=== PATIENT | male | born 1985 | race Caucasian/White ===

== ENCOUNTER 2016-09-18 01:33 | Emergency (ER) | payer OTHER ==
[2016-09-18 02:17] VITALS: BP 131/75
[2016-09-18] MEDS ORDERED: HYDROCODONE/ACETAMINOPHEN 5-325 MG 6 TAB/DSPK PO PRN (02:27)
--- NOTE | 2016-09-18 02:31 | ER Document Report ---
HPI - HPI Patient complains to provider of: right ankle pain Onset: Just prior to arrival Onset/Duration: Sudden Quality of pain: Achy Severity: Severe Pain Level: 5 Associated Symptoms: None Exacerbated by: Walking Relieved by: Denies Similar symptoms previously: No Recently seen / treated by doctor: No - MUSCULOSKELETAL Musculoskeletal: REPORTS: Extremity pain - DERM Skin Color: Normal, [place] - NURSING COMMENTS Comment: Pt presents to ED via EMS for Lt ankle injury. 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 Lt ankle is positive for swelling and tenderness. Tenderness runs up Lt calf. PMS intact, no notable deformities. Pt states he has numbness in his calf. 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 IN LAST 30 DAYS: No COUNTRY TRAVELED TO/FROM: [facility] HEENT: Atraumatic, Normocephalic - NECK Neck: Normal Inspection, Supple - RESPIRATORY Respiratory: No Respiratory Distress O2 Sat by Pulse Oximetry: 97 - CARDIOVASCULAR Cardiovascular: Tachycardia - MUSCULOSKELETAL/EXTREMETIES Musculoskeletal/Extremeties: Tender - left lateral ankle ttp, swelling, no obvious deformity, good pedal pulse, good cap refill - NEURO Level of Consciousness: Awake, Alert, Appropriate Motor/Sensory: No Motor Deficit Course - Re-evaluation Re-evalutation: 09/18/16 pt instructed on neg xray, plan of care. he verbalized understanding - Vital Signs Vital signs: Temp Pulse Resp BP Pulse Ox 103 H 17 131/75 H 97 09/18/16 02:16 09/18/16 02:16 09/18/16 02:16 09/18/16 02:16 - Diagnostic Test Radiology reviewed: Image reviewed, Reports reviewed - IMPRESSION: Soft tissue swelling. No acute fracture Procedures - Immobilization Left Ankle Pre-Proc Neuro Vasc Exam: Normal Immobilizer type: Ankle stirrup Performed by: PCT Post-Proc Neuro Vasc Exam: Unchanged from pre-exam Discharge - Discharge Clinical Impression: Left ankle injury Qualifiers: Encounter type: initial encounter Qualified Code(s): S99.912A - Unspecified injury of left ankle, initial encounter Condition: Stable Disposition: HOME, SELF-CARE Instructions: Ankle Stirrup Splint ([facility]), Ice & Elevation ([facility]), Use of Crutches ([facility]), Oral Narcotic Medication ([facility]) Additional Instructions: *You have been evaluated for an ankle injury *Rest/Ice/Elevate your ankle *Maintain the splint *Use your crutches *Follow up with orthopedics for continued pain-call for an appointment this week *Take medication as prescribed *Return to ED for worsening condition, changes, needs Forms: Elevated Blood Pressure
== END 2016-09-18 03:01 | disposition home or self-care (01) ==
LOC: ER 01:33
DX: S99.912A Unspecified injury of left ankle, initial encounter (principal); M25.571 Pain in right ankle and joints of right foot; F17.210 Nicotine dependence, cigarettes, uncomplicated; W11.XXXA Fall on and from ladder, initial encounter; Y99.0 Civilian activity done for income or pay
CPT/HCPCS: 99283; 73610; L1902

== ENCOUNTER 2016-11-04 19:04 | Emergency (ER) | payer OTHER ==
--- NOTE | 2016-11-04 19:23 | ER Document Report ---
ED Medical Screen (RME) - General Chief Complaint: Abdominal Pain Stated Complaint: ABDOMINAL PAIN, BACK PAIN Mode of Arrival: Ambulatory Information source: Patient Notes: Patient presents to the emergency department for complaints of epigastric pain since Sunday. Patient reports pain will go all the way to his back. Patient denies vomiting reports last bowel movement yesterday. Reports heartburn a few months ago. Denies heartburn now, reports he had some earlier today. I have greeted and performed a rapid initial assessment of this patient. A comprehensive ED assessment and evaluation of the patient, analysis of test results and completion of the medical decision making process will be conducted by additional ED providers. TRAVEL OUTSIDE OF THE [place] IN LAST 30 DAYS: No COUNTRY TRAVELED TO/FROM: [facility] - Related Data Allergies/Adverse Reactions: Penicillins Allergy (Verified 01/04/13 17:13) Past Medical History Musculoskeltal Medical History: Reports Hx Musculoskeletal Trauma - Immunizations Immunizations up to date: Yes Hx Diphtheria, Pertussis, Tetanus Vaccination: No Physical Exam - Vital signs Vitals: Temp Pulse Resp BP Pulse Ox 98.2 F 91 18 144/90 H 97 11/04/16 19:15 11/04/16 19:15 11/04/16 19:15 11/04/16 19:15 11/04/16 19:15 Course - Vital Signs Vital signs: Temp Pulse Resp BP Pulse Ox 98.2 F 91 18 144/90 H 97 11/04/16 19:15 11/04/16 19:15 11/04/16 19:15 11/04/16 19:15 11/04/16 19:15
[2016-11-04 19:42] LABS: ABSOLUTE BASOPHILS # (AUTO) 0.1 10^3/uL (0.0-0.2); ABSOLUTE EOSINOPHILS # (AUTO) 0.2 10^3/uL (0.0-0.6); ABSOLUTE LYMPHOCYTES (AUTO) 3.3 10^3/uL (0.5-4.7); ABSOLUTE MONOCYTES (AUTO) 0.6 10^3/uL (0.1-1.4); ABSOLUTE NEUT (AUTO) 6.6 10^3/uL (1.7-8.2); EOSINOPHILS % (AUTO) 1.9 % (0-6); HEMATOCRIT 44.8 % (37.9-51.0); HEMOGLOBIN 15.5 g/dL (13.5-17.0); HGB HCT DIFFERENCE 1.7; LYMPHOCYTES % (AUTO) 30.4 % (13-45); MEAN CORPUSCULAR HEMOGLOBIN 30.2 pg (27.0-33.4); MEAN CORPUSCULAR HGB CONC 34.6 g/dL (32.0-36.0); MEAN CORPUSCULAR VOLUME 87 fl (80-97); MONOCYTES % (AUTO) 5.1 % (3-13); RED BLOOD COUNT 5.13 10^6/uL (4.35-5.55); RED CELL DISTRIBUTION WIDTH 13.2 % (11.5-14.0); SEGMENTED NEUTROPHILS % (AUTO) 61.6 % (42-78); WHITE BLOOD COUNT 10.7 10^3/uL (4.0-10.5)
[2016-11-04 19:48] LABS: APPEARANCE,URINE CLEAR; BILIRUBIN,URINE NEGATIVE (NEGATIVE); GLUCOSE, URINE NEGATIVE (NEGATIVE); KETONES,URINE NEGATIVE (NEGATIVE); LEUKOCYTE ESTERASE,URINE NEGATIVE (NEGATIVE); NITRITE,URINE NEGATIVE (NEGATIVE); PROTEIN,URINE NEGATIVE (NEGATIVE); URINE SPECIFIC GRAVITY 1.005; UROBILINOGEN,URINE NEGATIVE mg/dL (<2.0)
[2016-11-04 19:57] LABS: ALANINE AMINOTRANSFERASE 45 U/L (21-72); ALBUMIN 4.6 g/dL (3.5-5.0); ALKALINE PHOSPHATASE 69 U/L (38-126); ANION GAP 13 (5-19); ASPARTATE AMINO TRANSFERASE 28 U/L (17-59); BILIRUBIN,DIRECT 0.2 mg/dL (0.0-0.3); BILIRUBIN,TOTAL 0.5 mg/dL (0.2-1.3); BLOOD UREA NITROGEN 10 mg/dL (7-20); CALCIUM 9.7 mg/dL (8.4-10.2); CARBON DIOXIDE 24 mmol/L (22-30); CHLORIDE 106 mmol/L (98-107); CREATININE RESULT 1.02 mg/dL (0.52-1.25); GLUCOSE 84 mg/dL (75-110); LIPASE 62.2 U/L (23-300); POTASSIUM 4.3 mmol/L (3.6-5.0); SODIUM 142.8 mmol/L (137-145); TOTAL PROTEIN 7.4 g/dL (6.3-8.2)
[2016-11-04] MEDS ORDERED: FAMOTIDINE 20 MG TABLET PO ONE (20:15)
[2016-11-04] MEDS ORDERED: SUCRALFATE 1 GM TABLET PO ONE (20:15)
[2016-11-04] MEDS ORDERED: ONDANSETRON 4 MG TAB.RAPDIS PO ONE (20:15)
--- NOTE | 2016-11-04 20:20 | ER Document Report ---
ED GI/ - General Chief Complaint: Abdominal Pain Stated Complaint: ABDOMINAL PAIN, BACK PAIN Time seen by provider: 20:10 Mode of Arrival: Ambulatory Notes: Patient is a 31 year old male that comes to the ED for chief complaint of pain in his mid to left upper abdomen with radiation around the side of his abdomen towards his back, symptoms have been present for about 4 days now noticeably, he states he has been getting heartburn frequently and he has also been belching frequently. He denies vomiting, denies abnormal bowel movements, denies fever, denies injury. Patient is on [place] for his left ankle pains, smokes, takes no daily medications reportedly. TRAVEL OUTSIDE OF THE [place] IN LAST 30 DAYS: No COUNTRY TRAVELED TO/FROM: [facility] - Related Data Allergies/Adverse Reactions: Penicillins Allergy (Verified 01/04/13 17:13) Past Medical History - General Information source: Patient - Social History Smoking Status: Current Every Day Smoker Chew tobacco use (# tins/day): No Smoking Education Provided: Yes - <3 min Frequency of alcohol use: Occasional Drug Abuse: None Lives with: Family Family History: None Patient has suicidal ideation: No Patient has homicidal ideation: No Renal/ Medical History: Denies: Hx Peritoneal Dialysis Musculoskeltal Medical History: Reports Hx Musculoskeletal Trauma - Immunizations Immunizations up to date: Yes Hx Diphtheria, Pertussis, Tetanus Vaccination: No Review of Systems - Review of Systems Constitutional: No symptoms reported EENT: No symptoms reported Cardiovascular: No symptoms reported Respiratory: No symptoms reported Gastrointestinal: See HPI Genitourinary: No symptoms reported Male Genitourinary: No symptoms reported Musculoskeletal: No symptoms reported Skin: No symptoms reported Hematologic/Lymphatic: No symptoms reported Neurological/Psychological: No symptoms reported Physical Exam - Vital signs Vitals: Temp Pulse Resp BP Pulse Ox 98.2 F 91 18 144/90 H 97 11/04/16 19:15 11/04/16 19:15 11/04/16 19:15 11/04/16 19:15 11/04/16 19:15 Interpretation: Normal - General General appearance: Appears well, Alert In distress: None - HEENT Head: Normocephalic, Atraumatic Eyes: Normal Pupils: PERRL - Respiratory Respiratory status: No respiratory distress Chest status: Nontender Breath sounds: Normal Chest palpation: Normal - Cardiovascular Rhythm: Regular Heart sounds: Normal auscultation Murmur: No - Abdominal Inspection: Normal Distension: No distension Bowel sounds: Normal Tenderness: Tender - Very slight epigastric and left upper quadrant tenderness on exam, generally benign and soft abdomen Organomegaly: No organomegaly - Back Back: Normal, Nontender - Extremities General upper extremity: Normal inspection, Nontender, Normal color, Normal ROM , Normal temperature General lower extremity: Normal inspection, Nontender, Normal color, Normal ROM , Normal temperature, Normal weight bearing. No: Harriett's sign - Neurological Neuro grossly intact: Yes Cognition: Normal Orientation: AAOx4 [place] Coma Scale Eye Opening: Spontaneous [place] Coma Scale Verbal: Oriented [place] Coma Scale Motor: Obeys Commands [place] Coma Scale Total: 15 Speech: Normal Motor strength normal: LUE, RUE, LLE, RLE Sensory: Normal - Psychological Associated symptoms: Normal affect, Normal mood - Skin Skin Temperature: Warm Skin Moisture: Dry Skin Color: Normal Course - Re-evaluation Re-evalutation: Patient with mild left upper quadrant pain on exam, reported symptoms consistent with gastritis and dyspepsia, laboratory workup is unremarkable, patient will be provided with omeprazole and Carafate for symptomatic treatment , discussed potential complications and return precautions, discussed outpatient follow-up. Patient states understanding and agreement. - Vital Signs Vital signs: Temp Pulse Resp BP Pulse Ox 98.3 F 78 16 143/96 H 97 11/04/16 20:40 11/04/16 20:40 11/04/16 20:40 11/04/16 20:40 11/04/16 20:40 - Laboratory Result Diagrams: 11/04/16 19:25 11/04/16 19:25 Laboratory results interpreted by me: 11/04/16 19:25 WBC 10.7 H Discharge - Discharge Clinical Impression: Upper abdominal pain Condition: Stable Disposition: HOME, SELF-CARE Additional Instructions: The workup does not show any concerning abnormalities. Symptoms, workup, examination of consistent with gastritis. Take the Prilosec and Carafate as directed, take Tums and Rolaids if needed additionally for symptoms, avoid ibuprofen, aspirin, high levels of caffeine, smoking, alcohol, spicy foods if possible. Follow-up with primary care for additional management. Return the emergency department for any concerning or worsening symptoms including severe pain, vomiting blood, black stools, or any other concerning symptoms. Prescriptions: Omeprazole 40 mg PO DAILY #30 capsule.dr Sucralfate [Carafate 1 gm Tablet] 1 gm PO QID #40 tablet Forms: Smoking Cessation Education, Elevated Blood Pressure
[2016-11-04 21:31] VITALS: BP 143/96
== END 2016-11-04 20:40 | disposition home or self-care (01) ==
LOC: ER 19:04
DX: R10.10 Upper abdominal pain, unspecified (principal); F17.200 Nicotine dependence, unspecified, uncomplicated; Z88.0 Allergy status to penicillin
CPT/HCPCS: 99284; 36415; 83690; 85025; 80053; 81001; 74000; S0119

== ENCOUNTER 2019-11-26 08:55 | Emergency (ER) | payer BC, OTHER ==
--- NOTE | 2019-11-26 10:00 | ER Document Report ---
ED Respiratory Problem - General Chief Complaint: Cough Stated Complaint: SHORTNESS OF BREATH Time Seen by Provider: 11/26/19 09:46 Notes: Patient works at the [employer] and people quarantined due to COVID-19 at [employer]. He was exposed to them and has a cough. No shortness of breath currently. Did have some when he walks. No chest pain.. TRAVEL OUTSIDE OF THE [place] IN LAST 30 DAYS: No - HPI Patient complains to provider of: Cough, Short of breath - none at rest Quality of pain: No pain Pain Level: Denies Sputum amount: None - Related Data Allergies/Adverse Reactions: Penicillins Allergy (Verified 01/04/13 17:13) Past Medical History - General Information source: Patient - Social History Smoking Status: Unknown if Ever Smoked Frequency of alcohol use: None Drug Abuse: None Family History: None Patient has suicidal ideation: No Patient has homicidal ideation: No - Medical History Medical History: Negative Renal/ Medical History: Denies: Hx Peritoneal Dialysis Musculoskeletal Medical History: Reports Hx Musculoskeletal Trauma - Immunizations Immunizations up to date: Yes Hx Diphtheria, Pertussis, Tetanus Vaccination: No Review of Systems - Review of Systems Constitutional: No symptoms reported EENT: No symptoms reported Cardiovascular: No symptoms reported Respiratory: No symptoms reported Gastrointestinal: No symptoms reported Genitourinary: No symptoms reported Male Genitourinary: No symptoms reported Musculoskeletal: No symptoms reported Skin: No symptoms reported Hematologic/Lymphatic: No symptoms reported Neurological/Psychological: No symptoms reported Physical Exam - Vital signs Vitals: Temp Pulse Resp BP Pulse Ox 97.9 F 102 H 16 125/88 H 97 11/26/19 09:37 11/26/19 09:37 11/26/19 09:37 11/26/19 09:37 11/26/19 09:37 Interpretation: Normal - General General appearance: Appears well, Alert - HEENT Head: Normocephalic, Atraumatic Eyes: Normal Pupils: PERRL - Respiratory Respiratory status: No respiratory distress Chest status: Nontender Breath sounds: Normal Chest palpation: Normal - Cardiovascular Rhythm: Regular Heart sounds: Normal auscultation Murmur: No - Abdominal Inspection: Normal Distension: No distension Bowel sounds: Normal Tenderness: Nontender Organomegaly: No organomegaly - Back Back: Normal, Nontender - Extremities General upper extremity: Normal inspection, Nontender, Normal color, Normal ROM, Normal temperature General lower extremity: Normal inspection, Nontender, Normal color, Normal ROM, Normal temperature, Normal weight bearing. No: Harriett's sign - Neurological Neuro grossly intact: Yes Cognition: Normal Orientation: AAOx4 [place] Coma Scale Eye Opening: Spontaneous [place] Coma Scale Verbal: Oriented [place] Coma Scale Motor: Obeys Commands [place] Coma Scale Total: 15 Speech: Normal Motor strength normal: LUE, RUE, LLE, RLE Sensory: Normal - Psychological Associated symptoms: Normal affect, Normal mood - Skin Skin Temperature: Warm Skin Moisture: Dry Skin Color: Normal Course - Re-evaluation Re-evalutation: 11/26/19 Patient with negative flu and strep. Screening test done for Covid-19. Test will be back in 4 to 5 days. Patient instructed to self quarantine in the meantime. Will be given work note for this. Return if worsening trouble breathing or further concerns. Vital stable in the emergency department. NO FEVER OR HYPOXIA. - Vital Signs Vital signs: Temp Pulse Resp BP Pulse Ox 96.3 F L 71 16 123/74 100 11/26/19 12:15 11/26/19 12:15 11/26/19 12:15 11/26/19 12:15 11/26/19 12:15 Discharge - Discharge Clinical Impression: Viral syndrome Condition: Stable Disposition: HOME, SELF-CARE Instructions: Viral Syndrome ([facility]) Additional Instructions: Please go home and start to self quarantine. Please call for further instructions. Forms: Return to Work
[2019-11-26 10:27] LABS: A TYPE INFLUENZA AG NEGATIVE (NEGATIVE); B INFLUENZA AG NEGATIVE (NEGATIVE)
[2019-11-26 12:46] VITALS: BP 123/74
[2019-12-03 13:36] LABS: RES PRO RESPIR SYNCYTIAL VIRUS Not Detected (Not Detect); RES PRO RHINOVIRUS/ENTEROVIRUS Detected (Not Detect); RESP PRO CHLAMYDOPHILA PNEUMON Not Detected (Not Detect); RESP PRO INFLUENZA A/H1-2009 Not Detected (Not Detect); RESP PROF BORDETELLA PERTUSSIS Not Detected (Not Detect); RESP PROF CORONAVIRUS 229E Not Detected (Not Detect); RESP PROF CORONAVIRUS HKU1 Not Detected (Not Detect); RESP PROF CORONAVIRUS NL63 Not Detected (Not Detect); RESP PROF CORONAVIRUS OC43 Not Detected (Not Detect); RESP PROF INFLUENZA A/H1 Not Detected (Not Detect); RESP PROF INFLUENZA A/H3 Not Detected (Not Detect); RESP PROF METAPNEUMOVIRUS Not Detected (Not Detect); RESP PROF PARAINFLUENZA 1 Not Detected (Not Detect); RESP PROF PARAINFLUENZA 2 Not Detected (Not Detect); RESP PROF PARAINFLUENZA 3 Not Detected (Not Detect); RESP PROF PARAINFLUENZA 4 Not Detected (Not Detect); RESPIRATORY PROF INFLUENZA A Not Detected (Not Detect); RESPIRATORY PROF INFLUENZA B Not Detected (Not Detect)
[2019-12-03 13:49] LABS: RESP PRO MYCOPLASMA PNEUMONIAE Not Detected (Not Detect)
== END 2019-11-26 12:20 | disposition home or self-care (01) ==
LOC: ER 08:55
DX: B34.9 Viral infection, unspecified (principal); R05 Cough; R06.02 Shortness of breath; Z20.828 Contact with and (suspected) exposure to other viral communicable diseases; Z88.0 Allergy status to penicillin
CPT/HCPCS: 36415; 87070; 87486; 87581; 87633; 87635; 87798; 87804; 87880; 99283